=== PATIENT | male | born 1990 | race Caucasian/White ===

== ENCOUNTER 2016-10-22 06:34 | Observation (INO) | payer SELFPAY ==
[~2016-10-22] VITALS: Ht 165.1 cm; Wt 100.0 kg
[2016-10-22] VITALS (10 sets, daily range): BP systolic 111–157; BP diastolic 60–90; PULSE 55–75; RESP 16–22; TEMP 97.4–98.5; O2SAT 98–100
[~2016-10-22 06:34] MED LIST: ALBU8I INH; PANT20 PO
[2016-10-22] MEDS ORDERED: OMEP20TA PO (06:47)
[2016-10-22] MEDS ORDERED: SODIUM CHLOR 0.9% 1000 ML INJ 1,000 ML IV SCH (06:53)
[2016-10-22] MEDS ORDERED: ONDANSETRON HCL 4 MG/2 ML VIAL IVP ONE (07:00)
[2016-10-22] MEDS ORDERED: MORPHINE SULFATE 4 MG/ML INJ IV PUSH ONE (07:00)
[2016-10-22] MEDS ORDERED: SODIUM CHLORIDE 0.9% FLUSH 5 ML FLUSH IVF PRN (07:00)
[2016-10-22 07:08] LABS: BASOPHIL % 0.3 % (0.0-2.0); EOSINOPHIL # 0.3 TH/MM3 (0-0.4); EOSINOPHIL % 2.3 % (0.0-4.0); HEMATOCRIT 46.7 % (39.0-51.0); HEMO FLAGS DIFF FINAL; LYMPH % 14.4 % (9.0-44.0); LYMPHOCYTE # 1.7 TH/MM3 (1.0-4.8); MEAN CELL VOLUME 80.2 FL (80.0-100.0); MEAN CORPUSCULAR HEMOGLOBIN 27.2 PG (27.0-34.0); MEAN CORPUSCULAR HGB CONC 33.9 % (32.0-36.0); MONO % 8.2 % (0.0-8.0); NEUT % 74.8 % (16.0-70.0); PLATELET COUNT 227 TH/MM3 (150-450); RED BLOOD COUNT 5.83 MIL/MM3 (4.50-5.90); WHITE BLOOD COUNT 12.1 TH/MM3 (4.0-11.0)
--- NOTE | 2016-10-22 07:12 | PD ---
HPI Chief Complaint: Abdominal Pain Time Seen by Provider: 07:10 Travel History International Travel<30 days: No Contact w/Intl Traveler<30days: No Traveled to known affect area: No History of Present Illness HPI 26-year-old male with history of gastritis, presents to the ER today with right lower quadrant abdominal pains that started at 4 AM this morning. He has been having nausea, vomiting but denies diarrhea, fevers, or any other symptoms. Pain is currently a 10 out of 10. Modifying Factors: None Associated Signs & Symptoms: Right lower quadrant abdominal pain Risk Factors: None PFSH Past Medical History Diminished Hearing: No Gastrointestinal Disorders: Yes ("FATTY" LIVER, gastroenteritis) GERD: Yes Respiratory: Yes (ASHTHMA) Immunizations Current: Yes Tetanus Vaccination: < 5 Years Influenza Vaccination: No Past Surgical History Surgical History: No Previous Surgery Social History Alcohol Use: No Tobacco Use: No Substance Use: Yes (REPORTS MARIJUANA USE) Allergies-Medications (Allergen,Severity, Reaction): Coded Allergies: Neurontin (Verified Allergy, Mild, shakes, 10/22/16) Reported Meds & Prescriptions Reported Meds & Active Scripts Active Reported Omeprazole 20 Mg Tab 20 Mg PO DAILY Review of Systems Except as stated in HPI: all other systems reviewed are Neg Physical Exam Narrative GENERAL: Well-nourished, well-developed young male patient in moderate distress. SKIN: Warm and dry. HEAD: Normocephalic. EYES: No scleral icterus. No injection or drainage. NECK: Supple, trachea midline. CARDIOVASCULAR: Regular rate and rhythm without murmurs, gallops, or rubs. RESPIRATORY: Breath sounds equal bilaterally. No accessory muscle use. GASTROINTESTINAL: Abdomen soft, right lower quadrant tenderness with guarding but no rebound, nondistended. MUSCULOSKELETAL: No cyanosis, or edema. BACK: Nontender without obvious deformity. No CVA tenderness. Data Data Last Documented VS Vital Signs Date Time Temp Pulse Resp B/P Pulse Ox O2 Delivery O2 Flow Rate FiO2 10/22/16 08:15 55 20 128/83 100 10/22/16 06:37 97.6 Orders Complete Blood Count With Diff (10/22/16 06:51) Comprehensive Metabolic Panel (10/22/16 06:51) Lipase (10/22/16 06:51) Urinalysis - C+S If Indicated (10/22/16 06:51) Iv Access Insert/Monitor (10/22/16 06:51) Ecg Monitoring (10/22/16 06:51) Oximetry (10/22/16 06:51) Sodium Chloride 0.9% Flush (Ns Flush) (10/22/16 07:00) Ct Abd/Pel W Iv Contrast(Rout) (10/22/16 06:53) Morphine Inj (Morphine Inj) (10/22/16 07:00) Ondansetron Inj (Zofran Inj) (10/22/16 07:00) Sodium Chlor 0.9% 1000 Ml Inj (Ns 1000 M (10/22/16 06:53) Iohexol 350 Inj (Omnipaque 350 Inj) (10/22/16 07:37) Consult General Surgery (10/22/16 ) Labs Laboratory Tests Test 10/22/16 10/22/16 06:55 08:12 White Blood Count 12.1 TH/MM3 Red Blood Count 5.83 MIL/MM3 Hemoglobin 15.8 GM/DL Hematocrit 46.7 % Mean Corpuscular Volume 80.2 FL Mean Corpuscular Hemoglobin 27.2 PG Mean Corpuscular Hemoglobin 33.9 % Concent Red Cell Distribution Width 14.0 % Platelet Count 227 TH/MM3 Mean Platelet Volume 8.9 FL Neutrophils (%) (Auto) 74.8 % Lymphocytes (%) (Auto) 14.4 % Monocytes (%) (Auto) 8.2 % Eosinophils (%) (Auto) 2.3 % Basophils (%) (Auto) 0.3 % Neutrophils # (Auto) 9.0 TH/MM3 Lymphocytes # (Auto) 1.7 TH/MM3 Monocytes # (Auto) 1.0 TH/MM3 Eosinophils # (Auto) 0.3 TH/MM3 Basophils # (Auto) 0.0 TH/MM3 CBC Comment DIFF FINAL Differential Comment Sodium Level 137 MEQ/L Potassium Level 3.6 MEQ/L Chloride Level 105 MEQ/L Carbon Dioxide Level 19.6 MEQ/L Anion Gap 12 MEQ/L Blood Urea Nitrogen 13 MG/DL Creatinine 1.24 MG/DL Estimat Glomerular Filtration 69 ML/MIN Rate Random Glucose 118 MG/DL Calcium Level 9.1 MG/DL Total Bilirubin 0.7 MG/DL Aspartate Amino Transf 21 U/L (AST/SGOT) Alanine Aminotransferase 61 U/L (ALT/SGPT) Alkaline Phosphatase 92 U/L Total Protein 7.6 GM/DL Albumin 4.2 GM/DL Lipase 299 U/L Urine Color YELLOW Urine Turbidity CLEAR Urine pH 7.0 Urine Specific [place] GREATER THAN 1.050 Urine Protein TRACE mg/dL Urine Glucose (UA) NEG mg/dL Urine Ketones 40 mg/dL Urine Occult Blood NEG Urine Nitrite NEG Urine Bilirubin NEG Urine Urobilinogen LESS THAN 2.0 MG/DL Urine Leukocyte Esterase NEG Urine RBC 1 /hpf Urine WBC 1 /hpf Urine Squamous Epithelial <1 /hpf Cells Urine Mucus FEW /lpf Microscopic Urinalysis Comment CULT NOT INDICATED MDM Medical Decision Making Medical Screen Exam Complete: Yes Emergency Medical Condition: Yes Medical Record Reviewed: Yes Interpretation(s) Laboratory Tests Test 10/22/16 10/22/16 06:55 08:12 White Blood Count 12.1 TH/MM3 (4.0-11.0) Neutrophils (%) (Auto) 74.8 % (16.0-70.0) Monocytes (%) (Auto) 8.2 % (0.0-8.0) Neutrophils # (Auto) 9.0 TH/MM3 (1.8-7.7) Monocytes # (Auto) 1.0 TH/MM3 (0-0.9) Carbon Dioxide Level 19.6 MEQ/L (21.0-32.0) Estimat Glomerular Filtration 69 ML/MIN (>89) Rate Random Glucose 118 MG/DL (74-106) Urine Specific [place] GREATER THAN 1.050 (1.002-1.035) Urine Ketones 40 mg/dL (NEG) Urine Mucus FEW /lpf (OCC) Last 24 hours Impressions Abdomen/Pelvis CT 10/22/16 0653 Signed Impressions: Service Date/Time: Saturday, October 22, 2016 07:32 - CONCLUSION: 1. No acute abnormality is seen. 2. Fatty infiltration of the liver. Howard Hull MD Differential Diagnosis Right lower quadrant abdominal painsrenal colic versus appendicitis versus diverticulitis versus gastroenteritis Narrative Course Lab work shows leukocytosis. CT of the abdomen did not reveal any signs of obvious acute processes. Early acute processes can be hard to detect. I have attempted to talk to General surgery regarding the case but at this point, they aren't the OR. At this point, case was discussed with for admission for abdominal pain. Consult placed for general surgery. Diagnosis Primary Impression: UNSPECIFIED ABDOMINAL PAIN Admitting Information Admitting Physician Requests: it Nic Mckeon MD Oct 22, 2016 07:12
[2016-10-22 07:19] LABS: ANION GAP 12 MEQ/L (5-15); AST (GOT) 21 U/L (15-37); BICARBONATE 19.6 MEQ/L (21.0-32.0); BLOOD UREA NITROGEN 13 MG/DL (7-18); CHLORIDE 105 MEQ/L (98-107); GLOMERULAR FILTRATION RATE 69 ML/MIN (>89); POTASSIUM 3.6 MEQ/L (3.5-5.1); SODIUM (NA) 137 MEQ/L (136-145)
[2016-10-22 07:23] LABS: ALKALINE PHOSPHATASE 92 U/L (45-117); ALT (GPT) 61 U/L (12-78); TOTAL BILIRUBIN ADULT 0.7 MG/DL (0.2-1.0)
[2016-10-22] MEDS ORDERED: IOHEXOL 350 MG/ML 10 ML VIAL (for RAD DIAG) IV ONE (07:37)
--- NOTE | 2016-10-22 08:12 | RADRPT ---
EXAM DATE/TIME: 10/22/2016 07:32 [facility] COMPARISON: CT ABDOMEN & PELVIS W CONTRAST, August 11, 2015, 13:03. INDICATIONS : Right lower quadrant pain. IV CONTRAST: 97 cc Omnipaque 350 (iohexol) IV ORAL CONTRAST: No oral contrast ingested. RADIATION DOSE: 14.92 CTDIvol (mGy) MEDICAL HISTORY : None SURGICAL HISTORY : None. ENCOUNTER: Initial ACUITY: 1 day PAIN SCALE: 5/10 LOCATION: Right lower quadrant TECHNIQUE: Volumetric scanning of the abdomen and pelvis was performed. Using automated exposure control and ad justment of the mA and/or kV according to patient size, radiation dose was kept as low as reasonably achievable to obtain optimal diagnostic quality images. FINDINGS: LOWER LUNGS: The visualized lower lungs are clear. LIVER: There is diffuse decreased density in the liver consistent with diffuse fatty infiltration. SPLEEN: Normal size without lesion. PANCREAS: Within normal limits. KIDNEYS: Normal in size and shape. There is no mass, stone or hydronephrosis. ADRENAL GLANDS: Within normal limits. VASCULAR: There is no aortic aneurysm. BOWEL/MESENTERY: The stomach, small bowel, and colon demonstrate no acute abnormality. There is no free intraperitone al air or fluid. ABDOMINAL WALL: Within normal limits. RETROPERITONEUM: There is no lymphadenopathy. BLADDER: No wall thickening or mass. REPRODUCTIVE: Within normal limits. INGUINAL: There is no lymphadenopathy or hernia. MUSCULOSKELETAL: Within normal limits for patient age. CONCLUSION: 1. No acute abnormality is seen. 2. Fatty infiltration of the liver. Howard Hull MD on October 22, 2016 at 8:08 Board Certified Radiologist. This report was verified electronically.
[2016-10-22 08:23] LABS: BLOOD, URINE NEG (NEG); GLUCOSE,URINE NEG (NEG); KETONE, URINE 40 mg/dL (NEG); MUCUS URINE FEW /lpf (OCC); NITRITE,URINE NEG (NEG); SQUAMOUS EPITHELIAL CELL URINE <1 /hpf (0-5); URINE COLOR YELLOW (YELLW/STRAW)
[2016-10-22 08:25] LABS: COMMENT (UR) CULT NOT INDICATED; CULTURE IF INDICATED CULT NOT INDICATED
[2016-10-22] MEDS: MORPHINE SULFATE 4 MG/ML INJ IV PUSH PRN ×4 (12:24→23:20)
[2016-10-22] MEDS: DEXT 5%-NACL 0.45% 1000 ML INJ 1,000 ML IV SCH ×2 (12:39→23:20)
[2016-10-22] MEDS ORDERED: PIPERACIL-TAZO 3.375 GM PREMIX 50 ML IV SCH (13:00)
--- NOTE | 2016-10-22 14:48 | HHI.HP ---
HPI Service [facility] Primary Care Physician Howard Rothman M.D. Admission Diagnosis right lower quadrant abdominal pain Diagnoses: Chief Complaint: RIGHT LOWER ABD. PAIN, N/V (Lawanda Brasher) Travel History International Travel<30 Days: No Contact w/Intl Traveler <30 Da: No Traveled to Known Affected Are: No (Lawanda Brasher) History of Present Illness This a 26-year-old male who is generally in good health, distant history of gastritis approximately 10 years ago, fatty liver. Patient presented to the emergency room for evaluation of right lower abdomen pain. Patient indicates that he woke up around 3 AM with sudden onset of sharp pain located to the right lower quadrant, nonradiating, associated with at least 4-5 episodes of nausea and vomiting. Vomitus initially with food content and then yellow color. No diarrhea, has not had a bowel movement in approximately 2 days, does not feel constipated. Denies any fever, no chills. No urinary symptoms. Denies any chest pain, shortness of breath. No heartburn, no belching. Indicates that the night before he ate some tacos that his cooked, nobody else in the household became sick. Indicates the pain was severe, 10 out of 10. Denies any prior abdominal surgery, had EGD for gastritis 10 years ago. Indicates that he's had this similar pain in the past but was not as severe and did not last long and it went away on its own. Patient was evaluated in the emergency room, laboratory workup was remarkable for mild leukocytosis, WBC 12.1. Patient was afebrile, blood pressure stable. BMP was unremarkable other than CO2 of 19.6 and GFR 69. Lipase 299. Urinalysis did not reveal any evidence of infection. CT of the abdomen was completed, there was no acute findings, fatty infiltration of the liver was noted. Emergency room physician attempted to call Gen. surgery but they were not available. A consultation has been put in place. Patient is evaluated in the emergency room, he has significant pain with minimal touch to the right lower abdomen. There is no rashes, no lesions or masses noted. Patient was started on empiric antibiotics , was given IV narcotics and antiemetics as well as IV fluids. Patient is admitted for further evaluation and treatment. (Lawanda Brasher) Review of Systems Constitutional: COMPLAINS OF: Change in appetite, DENIES: Diaphoretic episodes , Fatigue, Fever, Weight gain, Weight loss, Chills, Dizziness, Night Sweats Endocrine: DENIES: Heat/cold intolerance, Polydipsia, Polyuria, Polyphagia Eyes: DENIES: Blurred vision, Diplopia, Eye inflammation, Eye pain, Vision loss , Photosensitivity, Double Vision Ears, nose, mouth, throat: DENIES: Tinnitus, Hearing loss, Vertigo, Nasal discharge, Oral lesions, Throat pain, Hoarseness, Ear Pain, Running Nose, Epistaxis, Sinus Pain, Toothache, Odynophagia Respiratory: DENIES: Apneas, Cough, Snoring, Wheezing, Hemoptysis, Sputum production, Shortness of breath Cardiovascular: DENIES: Chest pain, Palpitations, Syncope, Dyspnea on Exertion , PND, Lower Extremity Edema, Orthopnea, Claudication Gastrointestinal: COMPLAINS OF: Abdominal pain, Nausea, Vomiting, DENIES: Black stools, Bloody stools, Constipation, Diarrhea, Difficulty Swallowing, Anorexia Genitourinary: DENIES: Sexual dysfunction, Urinary frequency, Urinary incontinence, Urgency, Hematuria, Dysuria, Nocturia, Penile Discharge, Testicular Pain, Testicular Swelling Musculoskeletal: DENIES: Joint pain, Muscle aches, Stiffness, Joint Swelling, Back pain, Neck pain Integumentary: DENIES: Abnormal pigmentation, Nail changes, Pruritus, Rash Hematologic/lymphatic: DENIES: Bruising, Lymphadenopathy Immunologic/allergic: DENIES: Eczema, Urticaria Neurologic: DENIES: Abnormal gait, Headache, Localized weakness, Paresthesias, Seizures, Speech Problems, Tremor, Poor Balance Psychiatric: DENIES: Anxiety, Confusion, Mood changes, Depression, Hallucinations, Agitation, Suicidal Ideation, Homicidal Ideation, Delusions ( Lawanda Brasher) Past Family Social History Past Medical History Gastritis and heartburn 10 years ago, was evaluated by gastroenterology and had EGD, was on Prevacid, symptoms have resolved Diagnosed with fatty liver, etiology unclear Asthma as a child, has been stable, doesn't use any inhalers Past Surgical History EGD Reported Medications Reported Meds & Active Scripts Active Reported Omeprazole 20 Mg Tab 20 Mg PO DAILY (Lawanda Brasher) Allergies: Coded Allergies: Neurontin (Verified Allergy, Mild, shakes, 10/22/16) Active Ordered Medications Inpatient Medications Dextrose/Sodium Chloride (D5W-1/2 NS 1000 ml Inj) 1,000 ml @ 125 mls/hr Q8H IV Last administered on 10/22/16 12:39; Start 10/22/16 at 12:00 Diphenhydramine HCl (Benadryl) 25 mg Q4H PRN PO itching; Start 10/22/16 at 15: 00 Famotidine 20 mg 20 mg Q12H IV PUSH Last administered on 10/22/16 15:13; Start 10/22/16 at 13:00 IV Flush (NS Flush) 2 ml UNSCH PRN IVF FLUSH AFTER USING IV ACCESS Last administered on 10/22/16 06:59; Start 10/22/16 at 07:00 Morphine Sulfate (Morphine Inj) 4 mg Q4H PRN IV PUSH PAIN 5 TO 10 Last administered on 10/22/16 19:54; Start 10/22/16 at 12:00 Morphine Sulfate 4 mg 4 mg ONCE ONCE IV PUSH Last administered on 10/22/16 06 :59; Start 10/22/16 at 07:00; Stop 10/22/16 at 07:01; Status DC Ondansetron HCl 4 mg 4 mg Q8HR PRN IV PUSH N/V Last administered on 10/22/16 19:02; Start 10/22/16 at 12:00 Piperacillin Sod/ Tazobactam Sod (Zosyn 3.375 Gm Premix) 50 ml @ 100 mls/hr Q6H IV Last administered on 10/22/16 17:48; Start 10/22/16 at 18:00 Pneumococcal Polyvalent Vaccine (Pneumovax-23 Inj) 25 mcg ONCE ONCE IM ; Start 10/23/16 at 09:00; Stop 10/23/16 at 09:01 Sodium Chloride (NS 1000 ml Inj) 1,000 ml @ 1,000 mls/hr Q1H IV Last administered on 10/22/16 06:58; Start 10/22/16 at 06:53; Stop 10/22/16 at 07:52 ; Status DC Family History Mother is alive and well, history hypertension Father is alive and well, history of pancreatitis Grandmother, had history of diabetes Social History Patient is unemployed, was supposed to start working today. He is , has no children. Does not drink any alcohol, no tobacco abuse, does smoke marijuana daily. (Lawanda Brasher) Physical Exam Vital Signs Vital Signs Date Time Temp Pulse Resp B/P Pulse Ox O2 Delivery O2 Flow Rate FiO2 10/22/16 12:17 72 22 130/79 99 10/22/16 08:15 55 20 128/83 100 10/22/16 07:53 62 20 128/83 100 10/22/16 07:09 98 10/22/16 06:49 75 16 128/83 100 10/22/16 06:47 20 10/22/16 06:37 97.6 74 20 157/87 100 Physical Exam GENERAL: This is a well-nourished, well-developed patient, in no apparent distress. SKIN: No rashes, ecchymoses or lesions. Cool and dry. HEAD: Atraumatic. Normocephalic. No temporal or scalp tenderness. EYES: Pupils equal round and reactive. Extraocular motions intact. No scleral icterus. No injection or drainage. ENT: Nose without bleeding, purulent drainage or septal hematoma. Throat without erythema, tonsillar hypertrophy or exudate. Uvula midline. Airway patent. NECK: Trachea midline. No JVD or lymphadenopathy. Supple, nontender, no meningeal signs. CARDIOVASCULAR: Regular rate and rhythm without murmurs, gallops, or rubs. RESPIRATORY: Clear to auscultation. Breath sounds equal bilaterally. No wheezes , rales, or rhonchi. GASTROINTESTINAL: Abdomen soft, extremely tender to palpation to the right lower abdomen, nondistended. Bowel sounds normoactive 4. Voluntary guarding. Unable to detect any organomegaly. MUSCULOSKELETAL: Extremities without clubbing, cyanosis, or edema. No joint tenderness, effusion, or edema noted. No calf tenderness. Negative Homans sign bilaterally. NEUROLOGICAL: Awake and alert. Cranial nerves II through XII intact. Motor and sensory grossly within normal limits. Five out of 5 muscle strength in all muscle groups. Normal speech. Laboratory Laboratory Tests Test 10/22/16 10/22/16 06:55 08:12 White Blood Count 12.1 Red Blood Count 5.83 Hemoglobin 15.8 Hematocrit 46.7 Mean Corpuscular Volume 80.2 Mean Corpuscular Hemoglobin 27.2 Mean Corpuscular Hemoglobin 33.9 Concent Red Cell Distribution Width 14.0 Platelet Count 227 Mean Platelet Volume 8.9 Neutrophils (%) (Auto) 74.8 Lymphocytes (%) (Auto) 14.4 Monocytes (%) (Auto) 8.2 Eosinophils (%) (Auto) 2.3 Basophils (%) (Auto) 0.3 Neutrophils # (Auto) 9.0 Lymphocytes # (Auto) 1.7 Monocytes # (Auto) 1.0 Eosinophils # (Auto) 0.3 Basophils # (Auto) 0.0 CBC Comment DIFF FINAL Differential Comment Sodium Level 137 Potassium Level 3.6 Chloride Level 105 Carbon Dioxide Level 19.6 Anion Gap 12 Blood Urea Nitrogen 13 Creatinine 1.24 Estimat Glomerular Filtration 69 Rate Random Glucose 118 Calcium Level 9.1 Total Bilirubin 0.7 Aspartate Amino Transf 21 (AST/SGOT) Alanine Aminotransferase 61 (ALT/SGPT) Alkaline Phosphatase 92 Total Protein 7.6 Albumin 4.2 Lipase 299 Urine Color YELLOW Urine Turbidity CLEAR Urine pH 7.0 Urine Specific [place] GREATER THAN 1.050 Urine Protein TRACE Urine Glucose (UA) NEG Urine Ketones 40 Urine Occult Blood NEG Urine Nitrite NEG Urine Bilirubin NEG Urine Urobilinogen LESS THAN 2.0 Urine Leukocyte Esterase NEG Urine RBC 1 Urine WBC 1 Urine Squamous Epithelial <1 Cells Urine Mucus FEW Microscopic Urinalysis Comment CULT NOT INDICATED (Lawanda Brasher) Result Diagram: 10/22/16 0655 10/22/16 0655 Imaging Last Impressions Abdomen/Pelvis CT 10/22/16 0653 Signed Impressions: Service Date/Time: Saturday, October 22, 2016 07:32 - CONCLUSION: 1. No acute abnormality is seen. 2. Fatty infiltration of the liver. Howard Hull MD (Lawanda Brasher) Assessment and Plan Problem List: (1) Right lower quadrant abdominal pain (2) Leukocytosis (3) Fatty liver (4) Marijuana smoker (5) Hx of gastritis Assessment and Plan Admit to Dr. Martell 26-year-old male presented to emergency room with right lower abdomen pain associated with nausea vomiting. CT of the abdomen and pelvis did not reveal any acute findings. Has mild leukocytosis. Concern for possible appendicitis, colitis. No concret etiology for abdominal pain at this time. -Continue with empiric antibiotics Continue with IV fluids Morphine IV as needed for pain Antiemetics as needed Keep nothing by mouth for now Gen. surgery consultation in place We will follow-up in the morning to evaluate whether there is any improvement, patient may need GI evaluation. History gastritis, denies epigastric discomfort, no heartburn Pepcid IV twice a day Fatty liver Continue to monitor -May need further workup with gastroenterology Home medications reviewed, initiated as indicated SCDs for DVT prophylaxis Pepcid for GI prophylaxis Plan of care discussed with attending, RN, and pt. Further management of the patient will be dependent on the hospital course. This patient was seen by myself and Dr. Martell, this H/P is written on his behalf. (Lawanda Brasher) Assessment and Plan PT is seen & Examined d/w PT & his sig other at bedside d/w Lawanda see Orders see H&P' GenSx input appreciated Silvano Martell MD Oct 22, 2016 19:04 (Silvano Martell MD) Problem Qualifiers (1) Leukocytosis: Qualified Code: D72.829 - Leukocytosis, unspecified type Lawanda Brasher Oct 22, 2016 14:48 Silvano Martell MD Oct 24, 2016 09:25
[2016-10-22] MEDS ORDERED: diphenhydrAMINE HCL 25 MG CAP PO PRN (15:00)
[2016-10-22] MEDS: FAMOTIDINE 20 MG/2 ML VIAL IV PUSH SCH (15:13)
[2016-10-22] MEDS: PIPERACIL-TAZO 3.375 GM PREMIX 50 ML IV SCH ×2 (17:48→23:20)
--- NOTE | 2016-10-22 18:51 | MB ---
cc: JIGAR REGAN M.D. DATE OF CONSULTATION 10/22/2016 REASON FOR CONSULTATION Right lower quadrant abdominal pain. HISTORY OF PRESENT ILLNESS The patient is a 26-year-old male with a history of gastritis who presented to the ER today with right lower quadrant abdominal pain that started 04:00 a.m. this morning. The patient underwent CT scan at 07:00 a.m. which was negative. However, the patient has severe right lower quadrant abdominal pain. We have been asked to evaluate the patient for possibility of surgical intervention. The patient reported bowel movement yesterday, none today. PAST MEDICAL HISTORY Significant for: 1. GI disorder including fatty liver and gastroenteritis. 2. He has a history of GE reflux disease. 3. Respiratory significant for a history of asthma. 4. He had last tetanus vaccination less than 5 years ago. PAST SURGICAL HISTORY The patient has no previous history of surgery. SOCIAL HISTORY He does not drink and he does not smoke. He does report marijuana use, however. ALLERGIES THE PATIENT HAS AN ALLERGY TO NEURONTIN WHICH CAUSES SHAKING. MEDICATIONS He is only on omeprazole 20 milligrams p.o. daily. REVIEW OF SYSTEMS Except as stated in the history present illness, review of systems is negative. PHYSICAL EXAMINATION GENERAL: Reveals an obese male who is mildly uncomfortable. VITAL SIGNS: BP 111/60, pulse 64, respirations 18, 100% saturation on room air. HEENT: Sclerae anicteric. Pupils reactive. CHEST: Clear to auscultation. CARDIOVASCULAR: Exam reveals regular rate and rhythm without murmurs. ABDOMEN: Soft with no scars noted. The patient does have pain in the right lower quadrant and around the right lateral abdomen to the right flank. The pain is particularly more severe laterally and not at McBurney's point. He has no pain elsewhere in the abdomen including no pain in the suprapubic region. No pain in the periumbilical region. Nothing in the epigastrium or left upper or lower quadrants. Pulses are present. NEUROLOGICAL: Cranial nerves II-XII grossly intact. Sensory and motor exam is grossly intact. LABORATORY DATA Laboratory values demonstrate WBC of 12.1, hemoglobin is 15.8, platelet count is 127,000. IMAGING On CT scan official reading demonstrates diffuse decreased density in the liver consistent with diffuse fatty infiltration. No free intraperitoneal air or fluid and no acute abnormality seen. There is a minimal amount of thumbprinting of the transverse colon and small amount in the ascending colon, however. This was reviewed with one of the radiologists. ASSESSMENT Right lower quadrant and right lateral flank type pain. Gastroenteritis versus colitis is a distinct possibility. We have not given the patient antibiotics and therefore if he has any acute appendiceal or acute problem regarding infectious, this should become readily apparent within the next 12 hours. I will see the patient again in the morning and if this is resolving, no surgical intervention is necessary. Would not repeat CT scan unless he becomes significantly worse. If he is not improving, a consultation to gastroenterology tomorrow would be appropriate. Would wait until tomorrow before placing this. We will follow with you. Thank you for asking us to see this individual. MD MARYSOL Dickey/KK /6:15 PM /6:40 PM
[2016-10-22] MEDS: ONDANSETRON HCL 4 MG/2 ML VIAL IV PUSH PRN (19:02)
--- NOTE | 2016-10-22 19:04 | HHI.PR ---
Objective Objective Results - Vital Signs Date Time Temp Pulse Resp B/P Pulse Ox O2 Delivery O2 Flow Rate FiO2 10/22/16 16:04 20 10/22/16 16:00 98.5 57 18 134/90 100 10/22/16 14:56 64 18 111/60 100 10/22/16 12:17 72 22 130/79 99 10/22/16 08:15 55 20 128/83 100 10/22/16 07:53 62 20 128/83 100 10/22/16 07:09 98 10/22/16 06:49 75 16 128/83 100 10/22/16 06:47 20 10/22/16 06:37 97.6 74 20 157/87 100 Result Diagram: 10/22/16 0655 10/22/16 0655 Other Results Laboratory Tests Test 10/22/16 10/22/16 06:55 08:12 White Blood Count 12.1 Red Blood Count 5.83 Hemoglobin 15.8 Hematocrit 46.7 Mean Corpuscular Volume 80.2 Mean Corpuscular Hemoglobin 27.2 Mean Corpuscular Hemoglobin 33.9 Concent Red Cell Distribution Width 14.0 Platelet Count 227 Mean Platelet Volume 8.9 Neutrophils (%) (Auto) 74.8 Lymphocytes (%) (Auto) 14.4 Monocytes (%) (Auto) 8.2 Eosinophils (%) (Auto) 2.3 Basophils (%) (Auto) 0.3 Neutrophils # (Auto) 9.0 Lymphocytes # (Auto) 1.7 Monocytes # (Auto) 1.0 Eosinophils # (Auto) 0.3 Basophils # (Auto) 0.0 CBC Comment DIFF FINAL Differential Comment Sodium Level 137 Potassium Level 3.6 Chloride Level 105 Carbon Dioxide Level 19.6 Anion Gap 12 Blood Urea Nitrogen 13 Creatinine 1.24 Estimat Glomerular Filtration 69 Rate Random Glucose 118 Calcium Level 9.1 Total Bilirubin 0.7 Aspartate Amino Transf 21 (AST/SGOT) Alanine Aminotransferase 61 (ALT/SGPT) Alkaline Phosphatase 92 Total Protein 7.6 Albumin 4.2 Lipase 299 Urine Color YELLOW Urine Turbidity CLEAR Urine pH 7.0 Urine Specific [place] GREATER THAN 1.050 Urine Protein TRACE Urine Glucose (UA) NEG Urine Ketones 40 Urine Occult Blood NEG Urine Nitrite NEG Urine Bilirubin NEG Urine Urobilinogen LESS THAN 2.0 Urine Leukocyte Esterase NEG Urine RBC 1 Urine WBC 1 Urine Squamous Epithelial <1 Cells Urine Mucus FEW Microscopic Urinalysis Comment CULT NOT INDICATED Physical Exam Physical Exam PT is seen & Examined d/w PT & his sig other at bedside d/w Lawanda see Orders see H&P' GenSx input appreciated Silvano Martell MD Oct 22, 2016 19:04
[2016-10-23] MEDS: FAMOTIDINE 20 MG/2 ML VIAL IV PUSH SCH ×2 (00:04→13:08)
[2016-10-23 03:45] VITALS: BP 156/94; PULSE 57; RESP 20; TEMP 98.3; O2SAT 98
[2016-10-23] MEDS: MORPHINE SULFATE 4 MG/ML INJ IV PUSH PRN ×5 (03:50→23:52)
[2016-10-23] MEDS: DEXT 5%-NACL 0.45% 1000 ML INJ 1,000 ML IV SCH ×3 (05:05→19:52)
[2016-10-23] MEDS: PIPERACIL-TAZO 3.375 GM PREMIX 50 ML IV SCH ×4 (05:05→23:52)
[2016-10-23 07:05] VITALS: BP 125/77; PULSE 60; RESP 16; TEMP 97.8; O2SAT 99
[2016-10-23 07:46] LABS: HEMATOCRIT 43.7 % (39.0-51.0); MEAN CELL VOLUME 81.1 FL (80.0-100.0); MEAN CORPUSCULAR HGB CONC 33.3 % (32.0-36.0); PLATELET COUNT 182 TH/MM3 (150-450); RED BLOOD COUNT 5.39 MIL/MM3 (4.50-5.90); RED CELL DISTRIBUTION WIDTH 13.9 % (11.6-17.2); REVIEW FLAG FINAL
[2016-10-23 08:09] LABS: BICARBONATE 27.1 MEQ/L (21.0-32.0); POTASSIUM 4.3 MEQ/L (3.5-5.1)
[2016-10-23] MEDS ORDERED: PNEUMOCOCCAL POLYVALENT INJ 25 MCG/0.5 ML SYR IM ONE (09:00)
--- NOTE | 2016-10-23 09:06 | HHI.PR ---
Subjective History of Present Illness still having Right Lower abd pain/pain meds are helping No N/V No fever or chills No diarrhea offers no other c/o Vitals/Results Vital Signs Vital Signs Date Time Temp Pulse Resp B/P Pulse Ox O2 Delivery O2 Flow Rate FiO2 10/23/16 08:11 18 10/23/16 07:05 97.8 60 16 125/77 99 10/23/16 03:45 98.3 57 20 156/94 98 10/22/16 23:45 97.4 63 20 138/78 98 10/22/16 19:24 98.2 63 20 127/81 98 10/22/16 16:00 98.5 57 18 134/90 100 10/22/16 14:56 64 18 111/60 100 10/22/16 12:17 72 22 130/79 99 CBC/BMP: 10/23/16 0730 10/23/16 0730 Lab Results Laboratory Tests Test 10/23/16 07:30 White Blood Count 7.0 TH/MM3 Red Blood Count 5.39 MIL/MM3 Hemoglobin 14.5 GM/DL Hematocrit 43.7 % Mean Corpuscular Volume 81.1 FL Mean Corpuscular Hemoglobin 27.0 PG Mean Corpuscular Hemoglobin 33.3 % Concent Red Cell Distribution Width 13.9 % Platelet Count 182 TH/MM3 Mean Platelet Volume 8.9 FL Sodium Level 142 MEQ/L Potassium Level 4.3 MEQ/L Chloride Level 107 MEQ/L Carbon Dioxide Level 27.1 MEQ/L Anion Gap 8 MEQ/L Blood Urea Nitrogen 9 MG/DL Creatinine 1.30 MG/DL Estimat Glomerular Filtration 66 ML/MIN Rate Random Glucose 128 MG/DL Calcium Level 8.6 MG/DL Physical Exam General General Appearance: No Acute Distress, Comfortable, Obese Eyes Eye Exam: Sclera White, Extraocular Movement Intact Ears & Nose Ears & Nose Exam: Nasal Mucosa [place] Throat Throat Exam: Oral Mucosa [place] & Moist Neck Neck Exam: Neck Supple, Trachea Midline Pulmonary Resp Exam: Clear Bilaterally, Breath Sounds Equal Cardiology CV Exam: Regular, Normal Sinus Rhythm Gastrointestinal/Abdomen GI Exam: Soft, Bowel Sounds Present Integumentary Skin Exam: Warm, Dry Extremeties Extremities Exam: No Edema, Pedal Pulses Palpable Neurologic Neuro Exam: Alert, Awake, Oriented, Speech Clear, Moving All Extremities PUD Prophylasis PUD Prophylaxis: Protonix Assessment/Plan Assessment/Plan Assessment and Plan Problem List: (1) Right lower quadrant abdominal pain (2) Leukocytosis (3) Fatty liver (4) Marijuana smoker (5) Hx of gastritis Assessment and Plan Admit to Dr. Martell 26-year-old male presented to emergency room with right lower abdomen pain associated with nausea vomiting. CT of the abdomen and pelvis did not reveal any acute findings. Has mild leukocytosis. Concern for possible appendicitis, colitis. No concret etiology for abdominal pain at this time. -Continue with empiric antibiotics Continue with IV fluids Morphine IV as needed for pain Antiemetics as needed Gen. surgery f/u - repeat CT abd w contrast - GI s consulted cont current tx - will f/u Silvano Martell MD Oct 23, 2016 09:06
[2016-10-23 11:03] VITALS: BP 123/68; PULSE 68; RESP 18; TEMP 97.9; O2SAT 99
--- NOTE | 2016-10-23 11:34 | HHI.PR ---
Subjective Subjective Notes Resting in bed C/o abdominal pain---no worse or better from yesterday Has been able to get out of bed some Objective Vitals/I&O Vital Signs Date Time Temp Pulse Resp B/P Pulse Ox O2 Delivery O2 Flow Rate FiO2 10/23/16 11:03 97.9 68 18 123/68 99 Labs Laboratory Tests Test 10/23/16 07:30 White Blood Count 7.0 Red Blood Count 5.39 Hemoglobin 14.5 Hematocrit 43.7 Mean Corpuscular Volume 81.1 Mean Corpuscular Hemoglobin 27.0 Mean Corpuscular Hemoglobin 33.3 Concent Red Cell Distribution Width 13.9 Platelet Count 182 Mean Platelet Volume 8.9 Sodium Level 142 Potassium Level 4.3 Chloride Level 107 Carbon Dioxide Level 27.1 Anion Gap 8 Blood Urea Nitrogen 9 Creatinine 1.30 Estimat Glomerular Filtration 66 Rate Random Glucose 128 Calcium Level 8.6 Cardiovascular: Regular Lungs: Clear Abdomen: Other (Abdominal pain localized in RLQ; does not radiate ) Extremities: No edema A/P Assessment and Plan 26 year old male with abdominal pain -WBC normal now -On Zosyn -Second review of CT from yesterday does not indicate appendicitis -Repeat scan with PO contrast -Consult GI Attending Note Abdominal pain along entire right side of abdomen now, not localized to RLQ Lateral flank pain much improved. As pt received Zosyn, more difficult to sort out whether he has colitis vs. appendicitis, although the latter is less likely now. GI has seen pt.; agree with endoscopy. Will follow The exam, history, and the medical decision-making described in the above note were completed with the assistance of the mid-level provider. I reviewed and agree with the findings presented. I attest that I had a [id number] encounter with the patient on the same day, and personally performed and documented my assessment and findings in the medical record. Maggy Louis Oct 23, 2016 11:34 Jorge Coleman MD Oct 23, 2016 16:19
[2016-10-23] MEDS: ONDANSETRON HCL 4 MG/2 ML VIAL IV PUSH PRN ×2 (13:41→19:58)
[2016-10-23 15:20] VITALS: BP 151/89; PULSE 67; RESP 18; TEMP 98; O2SAT 100
[2016-10-23] MEDS ORDERED: DIATRIZOATE MEGLUM/DIATRIZOATE SOD 9 ML CUP PO ONE (15:45)
--- NOTE | 2016-10-23 15:54 | PD.CONS ---
HPI History of Present Illness This is a 26 year old male patient who was awakened yesterday morning with severe right sided abdominal pain. It is an intermittent sharp pain without any radiation. He has associated nausea/vomiting with bilious material. He denies any relation to food intake. He cannot identify any aggravating or alleviating factors. He denies any diarrhea and states he has not moved his bowels in three days. He denies any fever or chills. He reports that he had a similar type pain a few months ago, but it wasn't as severe and resolved quickly on its own so he did not require medical evaluation. He does have GERD. He takes Omeprazole 20mg po daily. He states that it is controlled with this, but if he misses a dose, he will have severe heartburn and nausea/ vomiting. He reports that he had "gastroenteritis from 2004 to 2006 and fatty liver disease." He was evaluated with EGD up in [place] at that time. Abdomen/Pelvis CT (10/22/16)-----> 1. No acute abnormality is seen. 2. Fatty infiltration of the liver. He states that he went to [facility] for one day for this pain (maybe last year) and was told that if he came back, they would do a colonoscopy. Of note, he does smoke 8 blunts of marijuana per day. (Yaneth Solares) PFSH Past Medical History GERD Past Surgical History EGD Lipoma removal (Yaneth Solares) Coded Allergies: Neurontin (Verified Allergy, Mild, shakes, 10/22/16) Medications Allergies Coded Allergies Type Severity Reaction Last Updated Verified Neurontin Allergy Mild shakes 10/22/16 Yes Active Scripts Medications Dose Route/Sig Days Date Category Omeprazole 20 Mg Tab 20 Mg PO DAILY 10/22/16 Reported Family History No family hx of esophageal, gastric, or colorectal cancer. Maternal uncle and grandmother have diabetes Paternal gm has dm. Social History Does not smoke cigarettes. He does smoke marijuana 8 blunts per day. (Yaneth Solares) Review of Systems Constitutional: DENIES: Fatigue, Fever, Weight loss, Chills Respiratory: DENIES: Cough Cardiovascular: DENIES: Chest pain Gastrointestinal: COMPLAINS OF: Abdominal pain, Nausea, Vomiting, Heartburn, DENIES: Black stools, Bloody stools, Constipation, Diarrhea Musculoskeletal: DENIES: Joint pain Integumentary: DENIES: Abnormal pigmentation Hematologic/lymphatic: DENIES: Bruising Neurologic: DENIES: Headache Psychiatric: DENIES: Confusion (Yaneth Solares) GI Exam Vitals I&O Vital Signs Date Time Temp Pulse Resp B/P Pulse Ox O2 Delivery O2 Flow Rate FiO2 10/23/16 15:20 98.0 67 18 151/89 100 10/23/16 12:31 18 10/23/16 11:03 97.9 68 18 123/68 99 10/23/16 07:05 97.8 60 16 125/77 99 10/23/16 03:45 98.3 57 20 156/94 98 10/22/16 23:45 97.4 63 20 138/78 98 10/22/16 19:24 98.2 63 20 127/81 98 10/22/16 16:00 98.5 57 18 134/90 100 Imaging Last Impressions Abdomen/Pelvis CT 10/22/16 0653 Signed Impressions: Service Date/Time: Saturday, October 22, 2016 07:32 - CONCLUSION: 1. No acute abnormality is seen. 2. Fatty infiltration of the liver. Howard Hull MD Laboratory Test 10/23/16 07:30 White Blood Count 7.0 TH/MM3 Red Blood Count 5.39 MIL/MM3 Hemoglobin 14.5 GM/DL Hematocrit 43.7 % Mean Corpuscular Volume 81.1 FL Mean Corpuscular Hemoglobin 27.0 PG Mean Corpuscular Hemoglobin 33.3 % Concent Red Cell Distribution Width 13.9 % Platelet Count 182 TH/MM3 Mean Platelet Volume 8.9 FL Sodium Level 142 MEQ/L Potassium Level 4.3 MEQ/L Chloride Level 107 MEQ/L Carbon Dioxide Level 27.1 MEQ/L Anion Gap 8 MEQ/L Blood Urea Nitrogen 9 MG/DL Creatinine 1.30 MG/DL Estimat Glomerular Filtration 66 ML/MIN Rate Random Glucose 128 MG/DL Calcium Level 8.6 MG/DL Physical Examination HEENT: Normocephalic; atraumatic; no jaundice. Throat is clear. NECK: Neck is supple, no JVD, no lymphadenopathy. CHEST: CTA CARDIAC: RRR ABDOMEN: Soft, nondistended, mild tenderness Epigastric/RUQ/RLQ; no hepatosplenomegaly; bowel sounds are present in all four quadrants. EXTREMITIES: No clubbing, cyanosis, or edema. SKIN: Normal; no rash; no jaundice. MANAGER ANALYSIS: No focal deficits; alert and oriented times three. (Yaneth Solares) Assessment and Plan Plan ASSESSMENT: - Abdominal pain, n/v. Pt has intermittent abdominal pain/nausea/vomiting. States he was awakened at 4am with severe right sided sharp abdominal pain with n/v. Her does have GERD and takes omeprazole 20mg po daily. At first he stated that he had never had this, but then states he had similar pain from [id number] and underwent an EGD in [place] at that time. He reports he has also been seen in the ER for this and then was also evaluated at [facility] about a year ago and was told that if he had symptoms again he would be schedule for a colonoscopy. He states that he did not have this done. Abdomen/Pelvis CT (10/22/16)-----> 1. No acute abnormality is seen. 2. Fatty infiltration of the liver. Of note, he does smoke 8 blunts of marijuana per day. GS following. WBC okay. Will schedule egd/ colonoscopy for am. - GERD PPI. PLAN: - Plan for egd/colonoscopy in am - Obtain consents - Clear liquids - NPO after MN - Golytely prep - PPI - D/W patient marijuana cessation to see if that helped, but he states that he has been smoking heavily since he was 7 and that he has researched and knows that marijuana actually helps with nausea/abdominal pain and therefore does not wish to stop. - Supportive care - Further recommendations to follow based on results of above - This patient seen and examined by Dr. Keyes and myself and this note is written on his behalf - (Yaneth Solares) Physician Comments Seen and examined in the presence of , EGD/Colonoscopy tomorrow, golytle prep. Thank you (Susana Keyes MD) Yaneth Solares Oct 23, 2016 15:53 Susana Keyes MD Oct 23, 2016 16:58
[2016-10-23] MEDS ORDERED: PEG (High)/E-LYTE SOLN 4000 ML BTL PO ONE (16:00)
[2016-10-23] MEDS: PANTOPRAZOLE SODIUM 40 MG VIAL IV PUSH SCH (17:00)
--- NOTE | 2016-10-23 18:28 | RADRPT ---
EXAM DATE/TIME: 10/23/2016 17:53 [facility] COMPARISON: CT ABDOMEN & PELVIS W CONTRAST, October 22, 2016, 7:32. INDICATIONS : Right lower quadrant pain. ORAL CONTRAST: Prescribed oral contrast ingested. RADIATION DOSE: 15.39 CTDIvol (mGy) MEDICAL HISTORY : Gastroesophageal reflux disease. Gastroenteritis. SURGICAL HISTORY : None. ENCOUNTER: Initial ACUITY: 2 days PAIN SCALE: 5/10 LOCATION: Right lower quadrant TECHNIQUE: Volumetric scanning of the abdomen and pelvis was performed. Using automated exposure control and ad justment of the mA and/or kV according to patient size, radiation dose was kept as low as reasonably achievable to obtain optimal diagnostic quality images. FINDINGS: LOWER LUNGS: Tiny nonspecific pleural effusion seen at the visualized right lung base. LIVER: Fatty liver again noted. There is vicarious excretion of contrast from yesterday's CT within the gall bladder. SPLEEN: Normal size without lesion. PANCREAS: Within normal limits. KIDNEYS: Normal in size and shape. There is no mass, stone, or hydronephrosis. ADRENAL GLANDS: Within normal limits. VASCULAR: There is no aortic aneurysm. BOWEL/MESENTERY: The stomach, small bowel, and colon demonstrate no acute abnormality. There is no free intraperitone al air or fluid. The appendix is well-visualized, normal. ABDOMINAL WALL: Within normal limits. RETROPERITONEUM: There is no lymphadenopathy. BLADDER: No wall thickening or mass. REPRODUCTIVE: Within normal limits. INGUINAL: There is no lymphadenopathy or hernia. MUSCULOSKELETAL: Within normal limits for patient age. CONCLUSION: No acute abnormality demonstrated in the abdomen or pelvis. Fatty infiltration of the liver again see n. Tiny right pleural effusion evident at the base. Howard Ceballos MD on October 23, 2016 at 18:24 Board Certified Radiologist. This report was verified electronically.
[2016-10-23 19:39] VITALS: BP 129/86; PULSE 62; RESP 20; TEMP 98; O2SAT 99
[2016-10-24] VITALS (7 sets, daily range): BP systolic 117–140; BP diastolic 72–85; PULSE 63–83; RESP 18–20; TEMP 97.6–98.2; O2SAT 97–98
[2016-10-24] MEDS: FAMOTIDINE 20 MG/2 ML VIAL IV PUSH SCH ×2 (00:47→12:47)
[2016-10-24] MEDS: DEXT 5%-NACL 0.45% 1000 ML INJ 1,000 ML IV SCH ×3 (02:04→20:00)
[2016-10-24] MEDS: PIPERACIL-TAZO 3.375 GM PREMIX 50 ML IV SCH ×3 (05:50→17:04)
[2016-10-24] MEDS: MORPHINE SULFATE 4 MG/ML INJ IV PUSH PRN ×3 (06:12→16:18)
[2016-10-24 07:53] LABS: AUTOMATED NEUTROPHIL # 4.7 TH/MM3 (1.8-7.7); BASOPHIL % 0.6 % (0.0-2.0); EOSINOPHIL # 0.2 TH/MM3 (0-0.4); EOSINOPHIL % 3.2 % (0.0-4.0); HEMATOCRIT 43.1 % (39.0-51.0); HEMO FLAGS DIFF FINAL; LYMPH % 21.6 % (9.0-44.0); LYMPHOCYTE # 1.6 TH/MM3 (1.0-4.8); MEAN CORPUSCULAR HEMOGLOBIN 27.5 PG (27.0-34.0); MONO % 9.9 % (0.0-8.0); NEUT % 64.7 % (16.0-70.0); PLATELET COUNT 206 TH/MM3 (150-450); RED BLOOD COUNT 5.32 MIL/MM3 (4.50-5.90); WHITE BLOOD COUNT 7.3 TH/MM3 (4.0-11.0)
--- NOTE | 2016-10-24 10:40 | HHI.PR ---
Subjective History of Present Illness still having Right Lower abd pain/though little better pain meds are helping No N/V tolerating diet No fever or chills No diarrhea offers no other c/o Vitals/Results Vital Signs Vital Signs Date Time Temp Pulse Resp B/P Pulse Ox O2 Delivery O2 Flow Rate FiO2 10/24/16 10:10 97.9 65 18 117/77 98 10/24/16 07:16 97.9 65 18 117/77 98 10/24/16 04:33 98.1 63 20 125/72 97 10/24/16 00:30 98.1 63 20 125/75 97 10/23/16 19:39 98.0 62 20 129/86 99 10/23/16 15:20 98.0 67 18 151/89 100 10/23/16 12:31 18 10/23/16 11:03 97.9 68 18 123/68 99 CBC/BMP: 10/24/16 0650 10/23/16 0730 Lab Results Laboratory Tests Test 10/24/16 06:50 White Blood Count 7.3 TH/MM3 Red Blood Count 5.32 MIL/MM3 Hemoglobin 14.6 GM/DL Hematocrit 43.1 % Mean Corpuscular Volume 81.0 FL Mean Corpuscular Hemoglobin 27.5 PG Mean Corpuscular Hemoglobin 34.0 % Concent Red Cell Distribution Width 14.0 % Platelet Count 206 TH/MM3 Mean Platelet Volume 9.0 FL Neutrophils (%) (Auto) 64.7 % Lymphocytes (%) (Auto) 21.6 % Monocytes (%) (Auto) 9.9 % Eosinophils (%) (Auto) 3.2 % Basophils (%) (Auto) 0.6 % Neutrophils # (Auto) 4.7 TH/MM3 Lymphocytes # (Auto) 1.6 TH/MM3 Monocytes # (Auto) 0.7 TH/MM3 Eosinophils # (Auto) 0.2 TH/MM3 Basophils # (Auto) 0.0 TH/MM3 CBC Comment DIFF FINAL Differential Comment Physical Exam General General Appearance: No Acute Distress, Comfortable, Obese Eyes Eye Exam: Sclera White, Extraocular Movement Intact Ears & Nose Ears & Nose Exam: Nasal Mucosa [place] Throat Throat Exam: Oral Mucosa [place] & Moist Neck Neck Exam: Neck Supple, Trachea Midline Pulmonary Resp Exam: Clear Bilaterally, Breath Sounds Equal Cardiology CV Exam: Regular, Normal Sinus Rhythm Gastrointestinal/Abdomen GI Exam: Soft, Bowel Sounds Present Integumentary Skin Exam: Warm, Dry Extremeties Extremities Exam: No Edema, Pedal Pulses Palpable Neurologic Neuro Exam: Alert, Awake, Oriented, Speech Clear, Moving All Extremities PUD Prophylasis PUD Prophylaxis: Protonix Assessment/Plan Assessment/Plan Assessment and Plan Problem List: (1) Right lower quadrant abdominal pain (2) Leukocytosis (3) Fatty liver (4) Marijuana smoker (5) Hx of gastritis Assessment and Plan 26-year-old male presented to emergency room with right lower abdomen pain associated with nausea vomiting. CT of the abdomen and pelvis did not reveal any acute findings. . repeat CT abd no acute findings. - s/p EGD / Cscope , no sig findings -d/c antibiotics d/c IV fluids Morphine IV as needed for pain Antiemetics as needed possible d.c home in am - cont current tx - will f/u Silvano Martell MD Oct 24, 2016 10:40
[2016-10-24] MEDS ORDERED: PROPOFOL 200 MG/20 ML AMP IV ONE (10:42)
[2016-10-24] MEDS: PANTOPRAZOLE SODIUM 40 MG VIAL IV PUSH SCH (16:19)
--- NOTE | 2016-10-24 17:14 | HHI.PR ---
Subjective Subjective Notes Still with right sided abdominal pain Objective Vitals/I&O Vital Signs Date Time Temp Pulse Resp B/P Pulse Ox O2 Delivery O2 Flow Rate FiO2 10/24/16 16:23 18 10/24/16 15:41 97.7 83 129/80 97 Labs Laboratory Tests Test 10/24/16 06:50 White Blood Count 7.3 Red Blood Count 5.32 Hemoglobin 14.6 Hematocrit 43.1 Mean Corpuscular Volume 81.0 Mean Corpuscular Hemoglobin 27.5 Mean Corpuscular Hemoglobin 34.0 Concent Red Cell Distribution Width 14.0 Platelet Count 206 Mean Platelet Volume 9.0 Neutrophils (%) (Auto) 64.7 Lymphocytes (%) (Auto) 21.6 Monocytes (%) (Auto) 9.9 Eosinophils (%) (Auto) 3.2 Basophils (%) (Auto) 0.6 Neutrophils # (Auto) 4.7 Lymphocytes # (Auto) 1.6 Monocytes # (Auto) 0.7 Eosinophils # (Auto) 0.2 Basophils # (Auto) 0.0 CBC Comment DIFF FINAL Differential Comment Lungs: Clear Abdomen: Other (Tender right side of abdomen) A/P Assessment and Plan 26 year old male with abdominal pain -WBC normal now -Second CT from yesterday does not indicate appendicitis -Upper and lower endoscopy essentially normal according to GI service ( hemorrhoids) -Will sign off -Ok for diet Jorge Coleman MD Oct 24, 2016 17:14
[2016-10-25 00:17] VITALS: BP 136/79; PULSE 59; RESP 20; TEMP 98.2; O2SAT 99
[2016-10-25] MEDS: MORPHINE SULFATE 4 MG/ML INJ IV PUSH PRN (02:06)
[2016-10-25] MEDS: FAMOTIDINE 20 MG/2 ML VIAL IV PUSH SCH (02:06)
[2016-10-25 03:38] VITALS: BP 129/76; PULSE 61; RESP 19; TEMP 98.1; O2SAT 97
[2016-10-25] MEDS: DEXT 5%-NACL 0.45% 1000 ML INJ 1,000 ML IV SCH (04:00)
[2016-10-25 08:00] VITALS: BP 112/72; PULSE 69; RESP 20; TEMP 96.4; O2SAT 98
[2016-10-25] MEDS ORDERED: NORC5TAB PO (09:42)
[2016-10-25] MEDS ORDERED: DICY10CA12 PO (09:44)
--- NOTE | 2016-10-25 10:08 | HHI.DS ---
Discharge Summary Admission Date Oct 22, 2016 at 10:12 Discharge Date: Oct 25, 2016 Admitting Diagnosis right lower quadrant abdominal pain, (1) Right lower quadrant abdominal pain Diagnosis: Principal (2) Leukocytosis Diagnosis: Secondary (3) Fatty liver Diagnosis: Principal (4) Marijuana smoker Diagnosis: Secondary (5) Hx of gastritis Diagnosis: Principal Procedures colonoscopy Brief History This a 26-year-old male who was in generally in good health, distant history of gastritis approximately 10 years ago, fatty liver. Patient presented to the emergency room for evaluation of right lower abdomen pain. Patient indicates that he woke up around 3 AM on day of ER visit with sudden onset of sharp pain located to the right lower quadrant, nonradiating, associated with at least 4-5 episodes of nausea and vomiting. Vomitus initially with food content and then yellow color. No diarrhea, had not had a bowel movement in approximately 2 days , does not feel constipated. Denies any fever, no chills. No urinary symptoms. Denies any chest pain, shortness of breath. No heartburn, no belching. Indicates that the night before he ate some tacos that his cooked, nobody else in the household became sick. Indicates the pain was severe , 10 out of 10. Denies any prior abdominal surgery, had EGD for gastritis 10 years ago. Indicates that he's had this similar pain in the past but was not as severe and did not last long and it went away on its own. CBC/BMP: 10/24/16 0650 10/23/16 0730 Significant Findings Laboratory Tests Test 10/23/16 10/24/16 07:30 06:50 Estimat Glomerular Filtration 66 ML/MIN (>89) Rate Random Glucose 128 MG/DL (74-106) Monocytes (%) (Auto) 9.9 % (0.0-8.0) Imaging Last Impressions Abdomen/Pelvis CT 10/23/16 1106 Signed Impressions: Service Date/Time: October 17:53 - CONCLUSION: No acute abnormality demonstrated in the abdomen or pelvis. Fatty infiltration of the liver again seen. Tiny right pleural effusion evident at the base. Howard Ceballos MD PE at Discharge Physical Exam General General Appearance: No Acute Distress, Comfortable, Obese Eyes Eye Exam: Sclera White, Extraocular Movement Intact Ears & Nose Ears & Nose Exam: Nasal Mucosa [place] Throat Throat Exam: Oral Mucosa [place] & Moist Neck Neck Exam: Neck Supple, Trachea Midline Pulmonary Resp Exam: Clear Bilaterally, Breath Sounds Equal Cardiology CV Exam: Regular, Normal Sinus Rhythm Gastrointestinal/Abdomen GI Exam: Soft, Bowel Sounds Present Integumentary Skin Exam: Warm, Dry Extremeties Extremities Exam: No Edema, Pedal Pulses Palpable Neurologic Neuro Exam: Alert, Awake, Oriented, Speech Clear, Moving All Extremities PUD Prophylasis PUD Prophylaxis: Protonix Transfer Summary home with Hospital Course Patient was evaluated in the emergency room, laboratory workup was remarkable for mild leukocytosis, WBC 12.1. Patient was afebrile, blood pressure stable. BMP was unremarkable other than CO2 of 19.6 and GFR 69. Lipase 299. Urinalysis did not reveal any evidence of infection. CT of the abdomen was completed, there was no acute findings, fatty infiltration of the liver was noted. Emergency room physician attempted to call Gen. surgery but they were not available. A consultation has been put in place. Patient is evaluated in the emergency room, he has significant pain with minimal touch to the right lower abdomen. There was no rashes, no lesions or masses noted. Patient was started on empiric antibiotics, was given IV narcotics and antiemetics as well as IV fluids. Patient was admitted for further evaluation and treatment. GI consult done. Colonoscopy performed with no acute findings. Patient continued with gentle hydration throughout his hospital stay. He was monitored for pain management, PUD management, and prn nausea meds. She has been able to tolerate a regular diet, although he states he still has minimal appetite. Teary discharge instructions from myself include regular diet but start with full liquids such as soup and things that are easy to digest. Away from fatty foods and fried foods at least for the next few days. Patient has been monitored with labs, and vital signs which are been stable. Patient's Is in the room. Both agree that his discharge. He is stable from our standpoint and can be managed on an outpatient basis with his PCP. Pt Condition on Discharge: Good Discharge Disposition: Discharge Home Discharge Instructions DIET: Follow Instructions for: As Tolerated, No Restrictions, Soft Diet Additional Diet Instructions: Gradual increase in solid foods over next 24 hrs. Activities you can perform: Regular-No Restrictions Activities to Avoid: Strenuous Activity Follow up Referrals: Gastroenterology - 3 Weeks PCP Follow-up - 1 Week New Medications: Dicyclomine (Dicyclomine) 10 Mg Cap 10 MG PO TID Bowel Management #30 Ref 0 CAP Hydrocodone-Acetaminophen ([place]) 5-325 mg Tab 1 TAB PO Q6H PRN PAIN #20 Ref 0 TAB Continued Medications: Omeprazole (Omeprazole) 20 Mg Tab 20 MG PO DAILY #30 Ref 0 TAB June Ortega Oct 25, 2016 10:08
--- NOTE | 2016-10-25 10:20 | HHI.PR ---
Subjective Remarks No abd. pain No chest pain No nausea/ vomiting No headache Objective Objective Results - Vital Signs Date Time Temp Pulse Resp B/P Pulse Ox O2 Delivery O2 Flow Rate FiO2 10/25/16 03:38 98.1 61 19 129/76 97 10/25/16 00:17 98.2 59 20 136/79 99 10/24/16 21:52 98.2 79 19 140/85 97 10/24/16 16:23 18 10/24/16 15:41 97.7 83 18 129/80 97 10/24/16 11:26 97.6 63 18 139/85 97 10/24/16 11:11 75 18 136/86 95 10/24/16 11:06 75 18 139/75 93 10/24/16 11:01 98.3 79 16 135/83 92 I/O 10/24/16 10/24/16 10/24/16 10/25/16 10/25/16 10/25/16 07:00 15:00 23:00 07:00 15:00 23:00 Intake Total 150 ml Balance 150 ml Intake IV Total 150 ml # Voids 3 2 Result Diagram: 10/24/16 0650 10/23/16 0730 Medications and IVs NS, D/Cd this am. PUD med ROS General: Other (10 point ROS done. Exam negative/unremarkable.) Physical Exam Physical Exam PHYSICAL EXAMINATION GENERAL: This is a well-developed, well-nourished male who appears to be in no acute distress. He is alert and awake,X 4 HEAD: Normocephalic without any lesion or mass noted. Facial features appear symmetric. OROPHARYNGEAL: Oropharynx without erythema or edema. NECK: Supple. No nuchal rigidity or lymphadenopathy. Trachea midline without deviation. CARDIAC: Regular rhythm, regular rate, S1 and S2 are heard. Murmur none; no gallops or rubs. LUNGS: Clear to auscultation bilaterally. No wheeze, rhonchi or rale. No use of accessory muscles on inspiration or expiration. ABDOMEN: Soft, nontender, no organomegaly or masses. Bowel sounds are heard in all four quadrants. No rebound. No guarding. EXTREMITIES: No edema. Pulses equal bilateral. No cyanosis. NEUROLOGICAL: Patient mood and affect appropriate. No focal deficit SKIN:Warm and moist, dry Objective Remarks I'm feeling much better today. I'm ready to go home A/P Diagnosis: (1) Right lower quadrant abdominal pain (2) Leukocytosis (3) Fatty liver (4) Marijuana smoker (5) Hx of gastritis Plan: GI consult, check their input. colonoscopy was performed. Negative procedure setup for hemorrhoids. Gastritis history: She was eating homemade tacos on admission. No food poisoning noted but could have given him his nominal pain. Labs and vital signs monitored without issues. Nausea and vomiting subsided. It is a regular diet this a.m. Right lower quadrant pain resolved. Agent is stable for discharge. His has been discussed with patient and his Test with Dr. Martell. pt. seen on his behalf. Discharge Planning Home with Problem Qualifiers (1) Leukocytosis: Qualified Code: D72.829 - Leukocytosis, unspecified type June Ortega Oct 25, 2016 10:20
== END 2016-10-25 11:08 | disposition home or self-care (01) ==
LOC: NEPC 06:34 → NEDA 10:12 → NEPHCDU 16:46
PROVIDERS: ADMIT Specialist; ATTEND Specialist
DX: K52.9 Noninfective gastroenteritis and colitis, unspecified (principal); K64.9 Unspecified hemorrhoids; K76.0 Fatty (change of) liver, not elsewhere classified; K21.9 Gastro-esophageal reflux disease without esophagitis; K64.8 Other hemorrhoids; D72.829 Elevated white blood cell count, unspecified; F12.90 Cannabis use, unspecified, uncomplicated; F17.200 Nicotine dependence, unspecified, uncomplicated; Z23 Encounter for immunization
CPT/HCPCS: 00810; 43239; 45378; 74176; 74177; 80048; 80053; 81001; 83690; 85025; 85027; 88305; 90732; 94150; 96361; 96374; 96375; 99285; C9113; G0378; J2270; J2405; J2543; J7030; Q9963; Q9967